=== PATIENT | female | born 1980 | race African-American/Black ===

== ENCOUNTER 2023-06-26 02:34 | Emergency (ER) | payer SELFPAY ==
[2023-06-26 03:08] LABS: EOSINOPHILS ABSOLUTE AUTO 0.2 K/mm3 (0.0-0.4); EOSINOPHILS PERCENT AUTO 4.1 % (0.0-6.0); HEMATOCRIT 12.8 % (37.0-47.0); IMMATURE GRAN ABSOLUTE AUTO 0.01 K/mm3 (0.00-0.05); IMMATURE GRAN PERCENT AUTO 0.3 % (0.0-0.4); LYMPHOCYTES ABSOLUTE AUTO 1.3 K/mm3 (1.0-4.8); LYMPHOCYTES PERCENT AUTO 35.4 % (24.0-44.0); MEAN CORPUSCULAR HEMOGLOBIN 20.1 pg (28.0-32.0); MEAN CORPUSCULAR HGB CONC 26.6 g/dl (32.0-36.0); MEAN CORPUSCULAR VOLUME 75.7 fl (83.0-99.0); MEAN PLATELET VOLUME 9.7 fl (9.4-12.3); MONOCYTES ABSOLUTE AUTO 0.2 K/mm3 (0.0-0.8); MONOCYTES PERCENT AUTO 6.5 % (0.0-8.0); NEUTROPHILS PERCENT AUTO 53.7 % (41.0-71.0); PLATELET COUNT,PLT 75 K/mm3 (150-400); RED BLOOD CELL COUNT 1.69 M/mm3 (4.10-5.30)
[2023-06-26 03:09] LABS: HEMOGLOBIN 3.4 gm/dl (12.0-16.0)
[2023-06-26] MEDS: Tranexamic Acid 1,000 MG/10 ML Vial IV ONE (03:21)
[2023-06-26] MEDS: Sodium Chloride 0.9% 1,000 ML IV ONE (03:27)
[2023-06-26 03:29] LABS: ALANINE AMINOTRANSFERASE,ALT 23 U/L (14-59); ALBUMIN 3.3 g/dl (3.4-5.0); ALKALINE PHOSPHATASE 60 U/L (46-116); ANION GAP 14.6 (5-15); ASPARTATE AMNIOTRANSFERASE,AST 14 U/L (15-37); BILIRUBIN TOTAL 0.8 mg/dL (0.2-1.0); BLOOD UREA NITROGEN,BUN 7 mg/dL (7-18); BUN/CREATININE RATIO 11.7 (14-18); CALCIUM 8.2 mg/dL (8.5-10.1); CARBON DIOXIDE,CO2 25 mEq/L (21-32); CHLORIDE,CL 107 mEq/L (98-107); CREATININE 0.6 mg/dL (0.55-1.02); EST CRCL DRUG DOSING (CG) 103.32 mL/min; ESTIMATED GFR 113 mL/min (>60); GLUCOSE RANDOM 123 mg/dL (70-99); POTASSIUM,K 3.6 mEq/L (3.5-5.1); PROTEIN TOTAL,TP 6.5 g/dl (6.4-8.2); SODIUM,NA 143 mEq/L (136-145)
[2023-06-26 03:49] LABS: HCG QUANTITATIVE < 1.0 mIU/mL
[2023-06-26 04:41] LABS: FIBRINOGEN 244 mg/dL (187-446)
[2023-06-26 04:42] LABS: PROTHROMBIN TIME 10.7 SECONDS (9.7-12.0)
[2023-06-26 04:43] LABS: PTT,PARTIAL THROMBOPLSTIN TIME 21.5 SECONDS (21.7-31.4)
[2023-06-26 05:10] LABS: SLIDE REVIEW ABNORMAL SMEAR
[2023-06-26 05:17] LABS: D-DIMER QUANTITATIVE 0.74 mg/L (0.19-0.50)
[2023-06-26] MEDS: methylPREDNISolone Sodium Succinate 125 MG/2 ML SDV IVPUSH ONE (05:34)
[2023-06-26] MEDS: diphenhydrAMINE 50 MG/ML SDV IVPUSH ONE (05:34)
[2023-06-26 05:43] LABS: FIBRIN DEGREDATION PRODUCTS <5 ug/mL (<5)
[2023-06-26 06:15] LABS: BASOPHILS PERCENT AUTO 0.6 % (0.0-1.0); EOSINOPHILS ABSOLUTE AUTO 0.1 K/mm3 (0.0-0.4); EOSINOPHILS PERCENT AUTO 1.9 % (0.0-6.0); HEMATOCRIT 21.4 % (37.0-47.0); IMMATURE GRAN ABSOLUTE AUTO 0.02 K/mm3 (0.00-0.05); IMMATURE GRAN PERCENT AUTO 0.4 % (0.0-0.4); LYMPHOCYTES ABSOLUTE AUTO 0.8 K/mm3 (1.0-4.8); LYMPHOCYTES PERCENT AUTO 17.7 % (24.0-44.0); MEAN CORPUSCULAR HGB CONC 30.8 g/dl (32.0-36.0); MEAN CORPUSCULAR VOLUME 81.1 fl (83.0-99.0); MEAN PLATELET VOLUME 9.1 fl (9.4-12.3); MONOCYTES ABSOLUTE AUTO 0.3 K/mm3 (0.0-0.8); MONOCYTES PERCENT AUTO 6.4 % (0.0-8.0); NEUTROPHILS ABSOLUTE AUTO 3.4 K/mm3 (1.8-7.7); PLATELET COUNT,PLT 55 K/mm3 (150-400); RED BLOOD CELL COUNT 2.64 M/mm3 (4.10-5.30); WHITE BLOOD CELL COUNT,WBC 4.68 K/mm3 (3.9-11.3)
[2023-06-26 06:20] LABS: HEMOGLOBIN 6.6 gm/dl (12.0-16.0)
[2023-06-26 06:59] LABS: SLIDE REVIEW ABNORMAL SMEAR
== END 2023-06-26 06:45 ==
LOC: JD.ED 02:34
DX: N93.9 Abnormal uterine and vaginal bleeding, unspecified (principal); F17.210 Nicotine dependence, cigarettes, uncomplicated; Z91.030 Bee allergy status; Z91.018 Allergy to other foods
CPT/HCPCS: 36415; 36430; 36556; 80053; 83520; 83605; 84702; 85025; 85362; 85379; 85384; 85610; 85730; 86850; 86900; 86901; 86922; 96361; 96374; 96375; 99285; J1200; J2930; J7030; P9016; P9017; J3490